=== PATIENT | female | born 1945 | race African-American/Black ===

== ENCOUNTER 2017-01-22 10:12 | Day surgery (SDC) | payer MEDICARE, MEDICAID ==
[~2017-01-22 10:12] MED LIST: ADULT LOW DOSE81 M1 PO; ADULT LOW DOSE81 MG PO; ALBUTEROL SULF8.5 GM IH; ALBUTEROL0.83 MG/ML INH; ALBUTEROL17 GM INH; ALBUTEROL2.5 MG/0.1 IH; ALBUTEROL2.5 MG/3 M IH; ALLERGY RELIEF10 M2 PO; ALLOPURINOL300 M1 PO; ALLOPURINOL300 MG PO; ALTACE10 MG; ALTACE10 MG PO; AMBIEN10 MG PO; AMIODARONE HCL200 MG; AMIODARONE HCL200 MG PO; AMLODIPINE BESYL5 MG PO; ANBESOL TOP; ATROVENT HFA12.9 GM; ATROVENT21 MCG; AUGMENTIN 875-1 EAC1 PO; AUGMENTIN 875-1 EAC2 PO; BIDIL TABLET1 TAB PO; BISACODYL10 MG/SU RC; BISOPROLOL FUMA10 MG; BISOPROLOL FUMA10 MG PO; BYSTOLIC10 MG PO; BYSTOLIC5 M1 PO; CALCIUM + VITA1 EAC1 PO; CALCIUM 600 +1 EAC2 PO; CALCIUM PO; CLARITIN10 MG; CLONIDINE HCL0.1 M2 PO; CLONIDINE HCL0.1 MG PO; CLOPIDOGREL75 M1 PO; COATED ASPIRIN325 MG; COLACE100 M1 PO; COLACE100 MG PO; COMPAZINE10 M PO; COREG12.5 M1 PO; COREG25 M1 PO; COREG6.25 MG PO; COUGH SYRU100 MG/5 M PO; COUMADIN3 M1 PO; CRANBERRY1000 MG; CRESTOR10 MG PO; CRESTOR10 MG/TAB PO; CRESTOR5 MG PO; DELTASONE5 MG PO; DEMADEX100 MG PO; DILATRATE-SR40 MG PO; DOCUSATE SODIU100 MG; DULCOLAX5 MG; ENDOCET 5-3251 EACH PO; FEOSOL325 M1 PO; FLOVENT13; FUROSEMIDE20 MG PO; FUROSEMIDE40 MG; FUROSEMIDE80 M1 PO; GUAIFENESIN200 M2 PO; GUAIFENESIN200 M3 PO; GUAIFENESIN400 M1 PO; H PO; HUMULIN R100 U/ML; HUMULIN R100 U/ML SQ; HYDRALAZINE HC100 MG; HYDRALAZINE HCL25 MG PO; HYDRALAZINE HCL50 MG PO; HYDROCODON-ACE1 EA16 PO; HYDROCODON-ACE1 EAC7 PO; HYZAAR 100-25 T1 TAB; IMDUR30 MG PO; IRON325 MG PO; ISOCHRON40 MG PO; ISORDIL40 M1 PO; ISOSORBIDE DINI20 M1 PO; ISOSORBIDE DINI20 MG PO; K-DUR10 MEQ; K-DUR20 ME2 PO; K-DUR20 MEQ PO; KEFLEX500 MG PO; KEPPRA250 M1 PO; LANTUS100 U/ML; LANTUS100 U/ML SC; LANTUS100 UNITS/ SC; LASIX80 MG PO; LEVAQUIN500 MG PO; LEVAQUIN750 MG PO; LIPITOR80 MG; LIPITOR80 MG PO; LORTAB 5/500 TA1 TAB; MAG-AL PLUS SUS30 ML PO; MAXIMUM D310000 UNIT PO; METOLAZONE2.5 MG PO; METOLAZONE5 MG PO; MILK OF MAGNES311 MG PO; MOBIC15 MG; MUCINEX600 M1 PO; MUCINEX600 MG PO; MUCUS ER600 M1 PO; MUCUS PO; MULTIVITAMIN1 TAB PO; NASAL ALLERGY S13 ML; NITROGLYCERIN0.4 M2 SL; NITROGLYCERIN0.4 MG SL; NITROSTAT0.4 MG; NITROSTAT0.4 MG SL; NORCO 5-325 TA1 EACH PO; NORCO 5/3251 TAB PO; NORVASC10 MG PO; NORVASC5 MG PO; NOVOLIN R100 UNIT/1 SC; NOVOLIN-R100 UNITS/ SC; NOVOLOG100 U/M SQ; OMEGA 3 1,0001 EACH PO; PACERONE200 M1 PO; PATADAY2.5 ML EACH EYE; PERCOCET 5-3251 EACH PO; PHOSLYRA667 MG/51 PO; PLAVIX75 MG; POTASSIUM CHLO20 MEQ; PREDNISONE1 M1 PO; PREDNISONE1 MG PO; PREDNISONE10 MG PO; PREDNISONE2.5 MG PO; PREDNISONE20 MG PO; PRILOSEC20 MG; PRILOSEC20 MG PO; PROAIR HFA8.5 GM IH; PROPOXY-N-APAP1 TAB; PROTONIX40 M2 PO; PROTONIX40 MG PO; PROVENTIL HFA6.7 GM IH; RAMIPRIL5 MG PO; RAYOS PO; RAYOS2 M1 PO; RENVELA PO; RENVELA800 M1 PO; ROXICODONE5 M2 PO; SENOKOT-S TABL1 EACH PO; SENOKOT8.6 M1 PO; SENOKOT8.6 MG PO; SENSIPAR30 M1 PO; SENSIPAR60 M1 PO; SEREVENT; SEREVENT D50 MCG/DIS IH; SEREVENT INH; SILVADENE20 G1 TP; SPIRIVA18 MC1 INH; SPIRIVA18 MCG IH; SULFAMYLON60 GM; SYMBICORT 160-1 PUFF INH; SYMBICORT 160-4.6 GM IH; SYSTANE 0.3-0.4%1 EA OP; SYSTANE BOTH EYES; TORSEMIDE100 MG PO; TORSEMIDE20 M1 PO; TORSEMIDE20 M2 PO; TRAMADOL HCL50 MG; TRIAMCINOLONE A TOP; TRIAMCINOLONE A15 G2 TOP; TYLENOL EXTRA500 M1 PO; TYLENOL325 M2 PO; TYLENOL325 MG PO; TYLENOL500 MG PO; ULORIC40 MG PO; ULORIC40 MG/TAB PO; VENTOLIN HFA18 GM INH; VIBRAMYCIN100 MG PO; VICODIN 5/500 T1 TAB PO; VITA PO; VITAMIN D50000 UNI2 PO; WARFARIN SODIUM5 M2 PO; XANAX0.25 MG PO; ZESTRIL10 M3 PO; ZOFRAN4 MG PO; ZOHYDRO ER10 M1 PO; ZOLOFT100 M1 PO; ZOLOFT100 MG PO; [UNRECOGNIZED DRUG - OTHER]; [UNRECOGNIZED DRUG - OTHER] PO; [UNRECOGNIZED DRUG - OTHER] PO
[2017-01-22 11:15] LABS: BASO % 0.6 % (0-2); BASO ABSOLUTE COUNT 0.1 tho/cmm (0.0-0.2); EOS % 6.6 % (0-7); EOSINOPHIL ABSOLUTE COUNT 0.6 tho/cmm (0.0-0.7); HGB-HEMOGLOBIN 11.7 gm/dl (12.0-15.5); IMMATURE GRANULOCYTES ABSOLUTE 0.02 tho/cmm (0-0.03); IMMATURE GRANULOCYTES PERCENT 0.2 % (0-0.3); LYMPH % 12.5 % (20-45); LYMPH ABSOLUTE COUNT 1.1 tho/cmm (0.8-4.5); MCH (MEAN CORPUSCULAR HGB) 33.3 pg (28.0-32.0); MCHC MEAN CORPUSCULAR HGB CONC 33.4 % (32.0-36.0); MCV (MEAN CELL VOLUME) 99.7 fl (82.0-96.0); MEAN PLATELET VOLUME 10.4 cmc (9.4-12.4); MONO % 8.8 % (0-12); MONOCYTE ABSOLUTE COUNT 0.8 tho/cmm (0.0-1.2); NEUTROPHIL ABSOLUTE COUNT 6.3 tho/cmm (1.6-8.0); NEUTROPHIL-AUTOMATED 6.3 tho/cmm (1.6-8.0); NEUTROPHILS % 71.3 % (40-80); PLATELET COUNT 202 tho/cmm (150-450); RED BLOOD COUNT 3.51 mil/cmm (4.00-5.20); WHITE BLOOD COUNT 8.8 tho/cmm (4.0-10.0)
[2017-01-22 11:20] LABS: INR 0.9 INR (0.9-1.1)
[2017-01-22 11:21] LABS: ANION GAP 13 mmol/L (0-20); BLOOD UREA NITROGEN 37 mg/dl (6-24); CALCIUM 9.3 mg/dl (8.5-10.5); CARBON DIOXIDE-VENOUS 32 mmol/L (22-32); CHLORIDE 95 mmol/l (96-110); CREATININE 7.72 mg/dl (0.50-1.10); GLUCOSE 108 mg/dL (70-110); POTASSIUM 4.4 mmol/L (3.7-5.1); SODIUM 136 mmol/L (135-145); eGFR VALUE FOR BLACK 6 mL/Min
[2017-05-01] MEDS ORDERED: ASPIRIN81 M1 PO (13:10)
[2017-05-01] MEDS ORDERED: OXYCONTIN15 M1 PO (13:31)
[2017-05-01] MEDS ORDERED: HYDROCODON-ACE1 EA16 PO (13:33)
[2017-05-01] MEDS ORDERED: TYLENOL325 M2 PO (13:33)
[2017-05-01] MEDS ORDERED: NOVOLOG100 UNITS/ SC (13:34)
[2017-05-01] MEDS ORDERED: LEVEMIR100 UNITS/ SC (13:35)
== END 2017-01-22 14:40 ==
LOC: SRG 10:12 → SHSC 10:13
PROVIDERS: Surgery Vascular Surgery
PROC: 0JH60XZ Insertion of Tunneled Vascular Access Device into Chest Subcutaneous Tissue and Fascia, Open Approach (ICD-10-PCS; principal; 2017-01-22)
PROC: B513ZZA Fluoroscopy of Right Jugular Veins, Guidance (ICD-10-PCS; 2017-01-22)
PROC: 05HM33Z Insertion of Infusion Device into Right Internal Jugular Vein, Percutaneous Approach (ICD-10-PCS; 2017-01-22)
DX: T82.868A Thrombosis due to vascular prosthetic devices, implants and grafts, initial encounter (principal); I25.2 Old myocardial infarction; I25.10 Atherosclerotic heart disease of native coronary artery without angina pectoris; I13.2 Hypertensive heart and chronic kidney disease with heart failure and with stage 5 chronic kidney disease, or end stage renal disease; E11.22 Type 2 diabetes mellitus with diabetic chronic kidney disease; N18.6 End stage renal disease; I50.9 Heart failure, unspecified; F41.9 Anxiety disorder, unspecified; F32.9 Major depressive disorder, single episode, unspecified; H40.9 Unspecified glaucoma; H54.8 Legal blindness, as defined in USA; J45.909 Unspecified asthma, uncomplicated; J44.9 Chronic obstructive pulmonary disease, unspecified; I27.2 Other secondary pulmonary hypertension; K21.9 Gastro-esophageal reflux disease without esophagitis; F17.290 Nicotine dependence, other tobacco product, uncomplicated; Z79.01 Long term (current) use of anticoagulants; Z79.52 Long term (current) use of systemic steroids; Z79.4 Long term (current) use of insulin; Z79.899 Other long term (current) drug therapy; Z86.73 Personal history of transient ischemic attack (TIA), and cerebral infarction without residual deficits; Z86.14 Personal history of Methicillin resistant Staphylococcus aureus infection; Z90.49 Acquired absence of other specified parts of digestive tract; Z95.810 Presence of automatic (implantable) cardiac defibrillator; Z95.1 Presence of aortocoronary bypass graft; Z98.890 Other specified postprocedural states; Z99.2 Dependence on renal dialysis
CPT/HCPCS: C1750; J0690; J1644; J7030

== ENCOUNTER 2017-03-29 12:12 | Emergency (ER) | payer MEDICARE, MEDICAID ==
[2017-03-29] MEDS ORDERED: IPRAT-ALBUT 0.5-3 ML INH (13:03)
[2017-03-29] MEDS ORDERED: ZINC OXIDE30 G1 TP (13:04)
[2017-03-29] MEDS ORDERED: RESTASIS0.4 ML/EA OP (13:05)
[2017-03-29] MEDS ORDERED: OXYCONTIN20 M2 PO (13:06)
[2017-03-29] MEDS ORDERED: ULORIC40 MG/TAB PO (13:07)
[2017-03-29] MEDS ORDERED: CHERATUSSIN AC118 M1 PO (13:09)
[2017-03-29] MEDS ORDERED: ULTRAM50 M1 PO (13:09)
[2017-03-29] MEDS ORDERED: CLINDAMYCIN HC150 M1 PO (13:10)
[2017-03-29] MEDS ORDERED: SSD25 GM TP (13:11)
[2017-03-29] MEDS ORDERED: FLONASE ALLERG9.9 ML (13:12)
[2017-03-29] MEDS ORDERED: LIDOCAINE5 GM TP (13:13)
[2017-03-29] MEDS ORDERED: SENEXON-S TABL1 EAC1 PO (13:14)
[2017-03-29] MEDS ORDERED: COUMADIN3 M1 PO (13:14)
[2017-03-29] MEDS ORDERED: FERRIC CITRATE210 MG PO (13:16)
[2017-03-29] MEDS ORDERED: FEROSUL325 M1 PO (13:16)
[2017-03-29] MEDS ORDERED: ADVAIR 50028 BLISTE1 INH (13:16)
[2017-03-29] MEDS ORDERED: COLACE100 M1 PO (13:17)
[2017-03-29] MEDS ORDERED: NORCO 5-325 TA1 EACH PO (13:56)
[2017-05-01] MEDS ORDERED: ASPIRIN81 M1 PO (13:10)
[2017-05-01] MEDS ORDERED: OXYCONTIN15 M1 PO (13:31)
[2017-05-01] MEDS ORDERED: HYDROCODON-ACE1 EA16 PO (13:33)
[2017-05-01] MEDS ORDERED: TYLENOL325 M2 PO (13:33)
[2017-05-01] MEDS ORDERED: NOVOLOG100 UNITS/ SC (13:34)
[2017-05-01] MEDS ORDERED: LEVEMIR100 UNITS/ SC (13:35)
== END 2017-03-29 14:19 ==
LOC: EDMED 12:12
DX: I96 Gangrene, not elsewhere classified (principal); I87.8 Other specified disorders of veins; E11.9 Type 2 diabetes mellitus without complications; I10 Essential (primary) hypertension; Z86.73 Personal history of transient ischemic attack (TIA), and cerebral infarction without residual deficits; Z79.4 Long term (current) use of insulin; Z99.2 Dependence on renal dialysis; F17.200 Nicotine dependence, unspecified, uncomplicated; Z79.899 Other long term (current) drug therapy